=== PATIENT | male | born 1945 | race Caucasian/White ===

== ENCOUNTER 2022-02-21 16:07 | Emergency (ER) | payer OTHER ==
[~2022-02-21] VITALS: Ht 160 cm; Wt 72.6 kg
[2022-02-21 16:13] VITALS: BP_SYST 156
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
--- NOTE | 2022-02-21 16:22 | NUR ---
PLACED IN BED 5, DR. HAYS SEEN AT BS. REPORT GIVEN TO MARLO LINTON.
[2022-02-21] MEDS ORDERED: DIPHTH,PERTUSS(ACELL),TET VAC 0.5 ML VIAL (Tdap) I.M. ONE (16:30)
[2022-02-21] MEDS ORDERED: KETOROLAC TROMETHAMINE 30 MG VIAL IVP ONE (16:30)
[2022-02-21] MEDS ORDERED: PIPERACILLIN/TAZO 3.375 GM in NS 50 ML IV ONE (16:30)
[2022-02-21] MEDS ORDERED: PIPERACILLIN/TAZOBACTAM 3.375 GM/VIAL (ZOSYN) IV ONE (16:49)
[2022-02-21] MEDS ORDERED: AUG875 PO (18:34)
[2022-02-21] MEDS ORDERED: NAPR-690 PO (18:34)
[2022-02-21 18:43] VITALS: BP_SYST 156
--- NOTE | 2022-02-21 18:45 | NUR ---
Patient given written and verbal discharge instructions and verbalizes understanding. ER MD discussed with patient the results and treatment provided. Patient in stable condition. ID arm band removed. Rx of Augmentin and Naproxen given. Patient educated on pain management and to follow up with PMD. Pain Scale 2/10. Opportunity for questions provided and answered. Medication side effect fact sheet provided.
== END 2022-02-21 18:43 | disposition home or self-care (01) ==
LOC: SED 16:07
DX: S61.432A Puncture wound without foreign body of left hand, initial encounter (principal); E11.9 Type 2 diabetes mellitus without complications; I10 Essential (primary) hypertension; Z79.899 Other long term (current) drug therapy; W27.8XXA Contact with other nonpowered hand tool, initial encounter; Y93.89 Activity, other specified; Y92.89 Other specified places as the place of occurrence of the external cause; Y99.8 Other external cause status
CPT/HCPCS: 99284; 96365; 96375; 87040; 36415; 73120; 90715; 90471; J1885; J2543

== ENCOUNTER 2022-07-20 18:46 | Emergency (ER) | payer OTHER ==
[~2022-07-20] VITALS: Ht 160 cm; Wt 72.6 kg
[~2022-07-20 18:46] MED LIST: AUG875 PO; NAPR-690 PO
[2022-07-20 19:10] VITALS: BP_SYST 119
[2022-07-20] MEDS ORDERED: NAPR-688 PO ×3 (22:16→22:28)
[2022-07-20] MEDS ORDERED: PRED50TA PO ×3 (22:16→22:28)
[2022-07-20] MEDS ORDERED: TRAM50TA2 PO ×3 (22:16→22:28)
[2022-07-20 22:28] VITALS: BP_SYST 119
== END 2022-07-20 22:27 | disposition home or self-care (01) ==
LOC: SED 18:46
DX: M72.2 Plantar fascial fibromatosis (principal); M79.671 Pain in right foot; E11.9 Type 2 diabetes mellitus without complications; I10 Essential (primary) hypertension; Z79.899 Other long term (current) drug therapy
CPT/HCPCS: 99283